=== PATIENT | female | born 1970 ===

== ENCOUNTER 2020-01-18 18:23 | Inpatient (IN) ==
[2020-01-18] MEDS ORDERED: ONDANSETRON 4 MG/2 ML VIAL IV STA (19:04)
[2020-01-18] MEDS ORDERED: ALBUTEROL/IPRATROPIUM 3 ML NEB RESP TX STA (19:04)
[2020-01-18] MEDS ORDERED: MORPHINE 4 MG/1 ML VIAL IV STA (19:04)
[2020-01-18] MEDS ORDERED: methylPREDNISolone SOD SUC 125 MG/2 ML VIAL IV STA (19:04)
[2020-01-18] MEDS ORDERED: PIPERACILLIN/TAZOBACTAM 3,375 MG in SODIUM CHLORIDE 0.9% 100 ML IV STA (19:48)
[2020-01-18 20:35] LABS: Basophils # 0.1 10*3/uL (0.0-0.2); Hematocrit 36.7 VOL% (35.7-47.0); Hemoglobin 12.1 GM/DL (12.0-16.0); Immature Granulocytes % 2.6 %; Immature Granulocytes Absolute 0.18 #; Lymphocytes # 0.2 10*3/uL (1.4-4.0); Lymphocytes % 3.4 % (21.3-54.2); Mean Corpuscular Volume 93.9 FL (87-102); Monocytes % 3.6 % (1.7-12.7); NRBC # 0.09 10*3/uL; Neutrophils % 89.4 % (38.7-73.9); Platelet Count 75 T/CUMM (130-400); Red Blood Count 3.91 MC/CUMM (3.8-5.5); Red Cell Distribution Width 19.1 % (9.3-17.3)
[2020-01-18 20:44] LABS: INR 1.4; PT Patient Result 15.3 SECS (9.6-12.2)
[2020-01-18 20:57] LABS: Band Neutrophils 6 % (0-10); Lymphocytes 4 % (20-55); Nucleated Red Blood Cells 3 (0-5); Segmented Neutrophils 86 % (50-85); Total Cells Counted 100
[2020-01-18 20:58] LABS: Platelet Estimate Decreased
[2020-01-18 21:45] LABS: Bilirubin,Total 1.1 MG/DL (0.2-1.0); Calcium 6.4 MG/DL (8.5-10.1); Osmolality,Calculated 309.1 MOS/KG (273-304); Total Protein 6.2 G/DL (6.4-8.3)
[2020-01-18] MEDS ORDERED: SODIUM POLYSTYRENE SULFATE 15 GM/60 ML BOTTLE PO STA (21:51)
[2020-01-18] MEDS ORDERED: CALCIUM CHLORIDE 1,000 MG/10 ML SYRINGE IV STA (21:51)
[2020-01-18] MEDS ORDERED: ALBUTEROL 2.5 MG/3 ML NEB RESP TX PRN (22:34)
[2020-01-18] MEDS ORDERED: diphenhydrAMINE CAP 25 MG CAPSULE PO PRN (22:34)
[2020-01-18] MEDS ORDERED: PROMETHAZINE 25 MG/1 ML VIAL IM PRN (22:34)
[2020-01-18] MEDS ORDERED: NICOTINE 21 MG/24 HR PATCH TRANSDERM PRN (22:34)
[2020-01-18] MEDS ORDERED: MORPHINE 4 MG/1 ML VIAL IV PRN (22:34)
[2020-01-18] MEDS ORDERED: guaiFENesin/DM ER 600-30 MG TABLET PO PRN (22:34)
[2020-01-18] MEDS ORDERED: ACETAMINOPHEN 325 MG TABLET PO PRN (22:34)
[2020-01-18] MEDS ORDERED: DOCUSATE SODIUM 100 MG CAPSULE PO PRN (22:34)
[2020-01-18] MEDS ORDERED: HEPARIN 5,000 UNIT/1 ML VIAL SUBCUT SCH (23:00)
[2020-01-18] MEDS ORDERED: SODIUM POLYSTYRENE SULFATE 15 GM/60 ML BOTTLE PO ONE (23:00)
[2020-01-18] MEDS: AZITHROMYCIN INJ 500 MG in SODIUM CHLORIDE 0.9% 250 ML IV SCH (23:20)
[2020-01-19] MEDS ORDERED: VANCOMYCIN INJ 500 MG in SODIUM CHLORIDE 0.9% 250 ML IV PRN (00:07)
[2020-01-19] MEDS ORDERED: VANCOMYCIN INJ 1,500 MG in SODIUM CHLORIDE 0.9% 500 ML IV ONE (01:00)
[2020-01-19] MEDS: ZALEPLON 5 MG CAPSULE PO PRN (01:46)
[2020-01-19] MEDS: ALBUTEROL/IPRATROPIUM 3 ML NEB RESP TX SCH ×5 (02:00→19:24)
[2020-01-19 02:46] LABS: Basophils # 0.1 10*3/uL (0.0-0.2); Basophils % 1.2 % (0.0-0.8); Hematocrit 35.1 VOL% (35.7-47.0); Hemoglobin 11.2 GM/DL (12.0-16.0); Immature Granulocytes % 1.9 %; Immature Granulocytes Absolute 0.14 #; Lymphocytes # 0.3 10*3/uL (1.4-4.0); Lymphocytes % 3.3 % (21.3-54.2); Mean Corpuscular HGB Conc 31.9 GM/DL (32-36); Mean Corpuscular Volume 95.4 FL (87-102); Monocytes % 3.1 % (1.7-12.7); NRBC # 0.11 10*3/uL; Neutrophils % 90.5 % (38.7-73.9); Platelet Count 83 T/CUMM (130-400); Red Blood Count 3.68 MC/CUMM (3.8-5.5); Red Cell Distribution Width 18.8 % (9.3-17.3); White Blood Count 7.5 T/CUMM (4-12)
[2020-01-19 02:59] LABS: Calcium 6.9 MG/DL (8.5-10.1); Osmolality,Calculated 311.8 MOS/KG (273-304)
[2020-01-19 03:27] LABS: Band Neutrophils 3 % (0-10); Lymphocytes 3 % (20-55); Nucleated Red Blood Cells 2 (0-5); Segmented Neutrophils 82 % (50-85); Total Cells Counted 100
[2020-01-19 03:28] LABS: Anisocytosis 1+; Burr Cells 3+; Ovalocytes 1+; Platelet Estimate Decreased
[2020-01-19] MEDS ORDERED: DEXTROSE 50% 25 GM/50 ML VIAL IV PRN (06:24)
[2020-01-19] MEDS ORDERED: GLUCAGON 1 MG VIAL IM PRN (06:24)
[2020-01-19] MEDS: INSULIN LISPRO 100 UNIT/ML SUBCUT SCH ×4 (08:13→22:08)
[2020-01-19] MEDS: PANTOPRAZOLE 40 MG TABLET PO SCH (08:15)
[2020-01-19] MEDS: PIPERACILLIN/TAZOBACTAM 3,375 MG in SODIUM CHLORIDE 0.9% 100 ML IV SCH ×2 (08:15→21:01)
[2020-01-19] MEDS: hydrALAZINE 20 MG/1 ML VIAL IV PRN (17:00)
[2020-01-19] MEDS ORDERED: VANCOMYCIN INJ 500 MG in SODIUM CHLORIDE 0.9% 100 ML IV ONE (17:00)
[2020-01-19] MEDS: AZITHROMYCIN INJ 500 MG in SODIUM CHLORIDE 0.9% 250 ML IV SCH (22:10)
[2020-01-20] MEDS: ALBUTEROL/IPRATROPIUM 3 ML NEB RESP TX SCH ×4 (00:23→19:29)
[2020-01-20 05:14] LABS: Basophils # 0.1 10*3/uL (0.0-0.2); Basophils % 0.7 % (0.0-0.8); Hematocrit 32.4 VOL% (35.7-47.0); Hemoglobin 11.2 GM/DL (12.0-16.0); Immature Granulocytes % 1.8 %; Immature Granulocytes Absolute 0.16 #; Lymphocytes # 0.3 10*3/uL (1.4-4.0); Lymphocytes % 2.8 % (21.3-54.2); Mean Corpuscular HGB Conc 34.6 GM/DL (32-36); Mean Corpuscular Volume 89.8 FL (87-102); Monocytes % 2.3 % (1.7-12.7); NRBC # 0.14 10*3/uL; Neutrophils % 92.4 % (38.7-73.9); Red Blood Count 3.61 MC/CUMM (3.8-5.5); Red Cell Distribution Width 18.5 % (9.3-17.3)
[2020-01-20 05:24] LABS: Platelet Count 66 T/CUMM (130-400)
[2020-01-20 05:50] LABS: Calcium 7.1 MG/DL (8.5-10.1)
[2020-01-20 06:05] LABS: Band Neutrophils 2 % (0-10); Lymphocytes 4 % (20-55); Metamyelocytes 1 %; Nucleated Red Blood Cells 1 (0-5); Segmented Neutrophils 86 % (50-85); Total Cells Counted 100
[2020-01-20 06:06] LABS: Acanthocytes Few; Hypochromasia 1+; Target Cells Slight
[2020-01-20 06:07] LABS: Anisocytosis 1+; Burr Cells 2+; Platelet Estimate Decreased
[2020-01-20] MEDS: INSULIN LISPRO 100 UNIT/ML SUBCUT SCH ×4 (07:37→20:46)
[2020-01-20] MEDS: hydrALAZINE 20 MG/1 ML VIAL IV PRN (07:54)
[2020-01-20] MEDS: PIPERACILLIN/TAZOBACTAM 3,375 MG in SODIUM CHLORIDE 0.9% 100 ML IV SCH (07:55)
[2020-01-20] MEDS: PANTOPRAZOLE 40 MG TABLET PO SCH (08:09)
[2020-01-20] MEDS: ZALEPLON 5 MG CAPSULE PO PRN (20:46)
[2020-01-20] MEDS: AZITHROMYCIN INJ 500 MG in SODIUM CHLORIDE 0.9% 250 ML IV SCH (23:28)
[2020-01-21] MEDS: ALBUTEROL/IPRATROPIUM 3 ML NEB RESP TX SCH ×4 (00:34→19:45)
[2020-01-21] MEDS: ONDANSETRON 4 MG/2 ML VIAL IV PRN ×3 (05:27→22:13)
[2020-01-21 05:33] LABS: Basophils % 0.2 % (0.0-0.8); Hemoglobin 10.5 GM/DL (12.0-16.0); Immature Granulocytes % 1.3 %; Immature Granulocytes Absolute 0.13 #; Lymphocytes # 0.4 10*3/uL (1.4-4.0); Lymphocytes % 4.1 % (21.3-54.2); Mean Corpuscular HGB Conc 33.9 GM/DL (32-36); Mean Corpuscular Volume 90.4 FL (87-102); Monocytes % 5.4 % (1.7-12.7); NRBC # 0.12 10*3/uL; Red Blood Count 3.43 MC/CUMM (3.8-5.5); Red Cell Distribution Width 18.6 % (9.3-17.3); White Blood Count 9.9 T/CUMM (4-12)
[2020-01-21 05:36] LABS: Platelet Count 55 T/CUMM (130-400)
[2020-01-21 05:42] LABS: Calcium 6.5 MG/DL (8.5-10.1); Osmolality,Calculated 290.1 MOS/KG (273-304)
[2020-01-21 07:33] LABS: Band Neutrophils 1 % (0-10); Eosinophils 1 % (0-10); Hypochromasia 2+; Lymphocytes 5 % (20-55); Ovalocytes Few; Platelet Estimate Decreased; Segmented Neutrophils 88 % (50-85); Total Cells Counted 100
[2020-01-21] MEDS: INSULIN LISPRO 100 UNIT/ML SUBCUT SCH ×4 (08:04→20:42)
[2020-01-21] MEDS: hydrALAZINE 20 MG/1 ML VIAL IV PRN (09:06)
[2020-01-21] MEDS: PANTOPRAZOLE 40 MG TABLET PO SCH (09:06)
[2020-01-21] MEDS: carvediloL 6.25 MG TABLET PO SCH (12:48)
[2020-01-21] MEDS: CALCIUM ACETATE 667 MG CAPSULE PO SCH ×2 (12:48→16:34)
[2020-01-21] MEDS: cloNIDine 0.1 MG TABLET PO SCH ×2 (12:48→20:42)
[2020-01-21] MEDS: lisinopriL 2.5 MG TABLET PO SCH ×2 (12:48→20:42)
[2020-01-21] MEDS: AZITHROMYCIN INJ 500 MG in SODIUM CHLORIDE 0.9% 250 ML IV SCH (22:15)
[2020-01-22] MEDS: ALBUTEROL/IPRATROPIUM 3 ML NEB RESP TX SCH ×4 (01:50→19:20)
[2020-01-22 04:49] LABS: Basophils % 0.1 % (0.0-0.8); Eosinophils % 0.4 % (0.00-10.9); Hematocrit 32.3 VOL% (35.7-47.0); Hemoglobin 10.8 GM/DL (12.0-16.0); Immature Granulocytes % 1.2 %; Immature Granulocytes Absolute 0.09 #; Lymphocytes # 0.8 10*3/uL (1.4-4.0); Mean Corpuscular HGB Conc 33.4 GM/DL (32-36); Mean Corpuscular Volume 90.7 FL (87-102); Monocytes % 5.1 % (1.7-12.7); NRBC # 0.22 10*3/uL; Neutrophils % 83.2 % (38.7-73.9); Red Blood Count 3.56 MC/CUMM (3.8-5.5); Red Cell Distribution Width 18.6 % (9.3-17.3); White Blood Count 7.5 T/CUMM (4-12)
[2020-01-22 05:05] LABS: Calcium 6.1 MG/DL (8.5-10.1); Osmolality,Calculated 288.5 MOS/KG (273-304)
[2020-01-22 05:07] LABS: Platelet Count 33 T/CUMM (130-400)
[2020-01-22 05:12] LABS: Burr Cells Few; Hypochromasia 1+; Lymphocytes 9 % (20-55); Nucleated Red Blood Cells 5 (0-5); Ovalocytes Slight; Platelet Estimate Decreased; Segmented Neutrophils 83 % (50-85); Total Cells Counted 100
[2020-01-22] MEDS: INSULIN LISPRO 100 UNIT/ML SUBCUT SCH ×4 (07:52→21:00)
[2020-01-22] MEDS: CALCIUM ACETATE 667 MG CAPSULE PO SCH ×3 (08:37→17:53)
[2020-01-22] MEDS: PANTOPRAZOLE 40 MG TABLET PO SCH (08:37)
[2020-01-22] MEDS: cloNIDine 0.1 MG TABLET PO SCH ×2 (15:11→20:59)
[2020-01-22] MEDS: carvediloL 6.25 MG TABLET PO SCH (15:11)
[2020-01-22] MEDS: lisinopriL 2.5 MG TABLET PO SCH ×2 (15:11→20:59)
[2020-01-22] MEDS ORDERED: VANCOMYCIN INJ 500 MG in SODIUM CHLORIDE 0.9% 100 ML IV ONE (17:00)
[2020-01-22] MEDS: cefTRIAXone 1,000 MG in SYRINGE 1 EACH IV SCH (17:53)
[2020-01-22] MEDS: ZALEPLON 5 MG CAPSULE PO PRN (20:58)
[2020-01-23] MEDS: ALBUTEROL/IPRATROPIUM 3 ML NEB RESP TX SCH ×4 (00:13→19:08)
[2020-01-23 04:49] LABS: Basophils % 0.1 % (0.0-0.8); Eosinophils % 0.3 % (0.00-10.9); Hemoglobin 10.5 GM/DL (12.0-16.0); Immature Granulocytes % 2.4 %; Immature Granulocytes Absolute 0.18 #; Lymphocytes # 0.9 10*3/uL (1.4-4.0); Lymphocytes % 11.2 % (21.3-54.2); Mean Corpuscular HGB Conc 32.8 GM/DL (32-36); Mean Corpuscular Volume 91.7 FL (87-102); Monocytes % 5.3 % (1.7-12.7); Neutrophils % 80.7 % (38.7-73.9); Red Blood Count 3.49 MC/CUMM (3.8-5.5); Red Cell Distribution Width 18.5 % (9.3-17.3); White Blood Count 7.6 T/CUMM (4-12)
[2020-01-23 05:04] LABS: Platelet Count 38 T/CUMM (130-400)
[2020-01-23 05:07] LABS: Hypochromasia 1+; Ovalocytes Few
[2020-01-23 05:08] LABS: Acanthocytes Few; Anisocytosis 1+; Target Cells Slight
[2020-01-23 05:09] LABS: Platelet Estimate Decreased
[2020-01-23 05:19] LABS: Calcium 6.2 MG/DL (8.5-10.1); Osmolality,Calculated 280.4 MOS/KG (273-304)
[2020-01-23] MEDS: lisinopriL 2.5 MG TABLET PO SCH ×2 (08:36→21:32)
[2020-01-23] MEDS: carvediloL 6.25 MG TABLET PO SCH (08:36)
[2020-01-23] MEDS: CALCIUM ACETATE 667 MG CAPSULE PO SCH ×3 (08:36→16:59)
[2020-01-23] MEDS: INSULIN LISPRO 100 UNIT/ML SUBCUT SCH ×4 (08:36→21:31)
[2020-01-23] MEDS: cloNIDine 0.1 MG TABLET PO SCH ×2 (08:36→21:32)
[2020-01-23] MEDS: PANTOPRAZOLE 40 MG TABLET PO SCH (08:36)
[2020-01-23] MEDS: cefTRIAXone 1,000 MG in SYRINGE 1 EACH IV SCH (17:00)
[2020-01-24] MEDS: ALBUTEROL/IPRATROPIUM 3 ML NEB RESP TX SCH ×4 (00:18→19:06)
[2020-01-24 05:03] LABS: Basophils # 0.1 10*3/uL (0.0-0.2); Basophils % 0.4 % (0.0-0.8); Eosinophils # 0.1 10*3/uL (0.0-0.87); Eosinophils % 0.9 % (0.00-10.9); Immature Granulocytes % 5.1 %; Immature Granulocytes Absolute 0.69 #; Lymphocytes # 1.1 10*3/uL (1.4-4.0); Lymphocytes % 8.3 % (21.3-54.2); Mean Corpuscular HGB Conc 33.2 GM/DL (32-36); Mean Corpuscular Volume 92.2 FL (87-102); Monocytes % 4.8 % (1.7-12.7); NRBC # 0.33 10*3/uL; Neutrophils % 80.5 % (38.7-73.9); Red Blood Count 4.12 MC/CUMM (3.8-5.5); Red Cell Distribution Width 18.9 % (9.3-17.3); White Blood Count 13.4 T/CUMM (4-12)
[2020-01-24 05:21] LABS: Hemoglobin 12.6 GM/DL (12.0-16.0); Platelet Count 65 T/CUMM (130-400)
[2020-01-24 05:37] LABS: Calcium 6.8 MG/DL (8.5-10.1); Osmolality,Calculated 274.8 MOS/KG (273-304)
[2020-01-24 06:12] LABS: Hypochromasia 1+; Lymphocytes 11 % (20-55); Nucleated Red Blood Cells 2 (0-5); Ovalocytes Slight; Platelet Estimate Decreased; Segmented Neutrophils 83 % (50-85); Total Cells Counted 100
[2020-01-24] MEDS: INSULIN LISPRO 100 UNIT/ML SUBCUT SCH ×4 (09:18→21:41)
[2020-01-24] MEDS: CALCIUM ACETATE 667 MG CAPSULE PO SCH ×3 (09:19→17:42)
[2020-01-24] MEDS: cloNIDine 0.1 MG TABLET PO SCH ×2 (09:19→21:40)
[2020-01-24] MEDS: carvediloL 6.25 MG TABLET PO SCH (09:19)
[2020-01-24] MEDS: lisinopriL 2.5 MG TABLET PO SCH ×2 (09:19→21:40)
[2020-01-24] MEDS: PANTOPRAZOLE 40 MG TABLET PO SCH (09:19)
[2020-01-24] MEDS ORDERED: VANCOMYCIN INJ 500 MG in SODIUM CHLORIDE 0.9% 100 ML IV ONE (17:00)
[2020-01-24] MEDS: cefTRIAXone 1,000 MG in SYRINGE 1 EACH IV SCH ×2 (17:43→21:38)
[2020-01-24] MEDS: ZALEPLON 5 MG CAPSULE PO PRN (21:40)
[2020-01-25] MEDS: hydrALAZINE 20 MG/1 ML VIAL IV PRN (00:35)
[2020-01-25] MEDS: ALBUTEROL/IPRATROPIUM 3 ML NEB RESP TX SCH ×4 (00:40→13:16)
[2020-01-25] MEDS: ONDANSETRON 4 MG/2 ML VIAL IV PRN (06:11)
[2020-01-25] MEDS ORDERED: carvediloL 6.25 MG TABLET PO SCH (09:00)
[2020-01-25 09:20] LABS: Basophils % 0.2 % (0.0-0.8); Eosinophils # 0.1 10*3/uL (0.0-0.87); Eosinophils % 0.6 % (0.00-10.9); Hematocrit 36.9 VOL% (35.7-47.0); Hemoglobin 11.9 GM/DL (12.0-16.0); Immature Granulocytes % 3.7 %; Immature Granulocytes Absolute 0.34 #; Lymphocytes # 0.7 10*3/uL (1.4-4.0); Mean Corpuscular HGB Conc 32.2 GM/DL (32-36); Mean Corpuscular Volume 92.7 FL (87-102); Mean Platelet Volume 12.2 FL (9.6-12.0); Monocytes % 5.7 % (1.7-12.7); NRBC # 0.12 10*3/uL; Neutrophils % 81.8 % (38.7-73.9); Platelet Count 123 T/CUMM (130-400); Red Blood Count 3.98 MC/CUMM (3.8-5.5); Red Cell Distribution Width 18.7 % (9.3-17.3); White Blood Count 9.3 T/CUMM (4-12)
[2020-01-25] MEDS: INSULIN LISPRO 100 UNIT/ML SUBCUT SCH (09:42)
[2020-01-25] MEDS: PANTOPRAZOLE 40 MG TABLET PO SCH (09:43)
[2020-01-25] MEDS: lisinopriL 2.5 MG TABLET PO SCH (09:43)
[2020-01-25] MEDS: CALCIUM ACETATE 667 MG CAPSULE PO SCH ×2 (09:43→12:40)
[2020-01-25] MEDS: cloNIDine 0.1 MG TABLET PO SCH (09:43)
[2020-01-25] MEDS ORDERED: INFLUENZA VIRUS VACCINE 0.5 ML SYRINGE IM ONE (12:22)
[2020-01-25 13:29] VITALS: BP 199/101
== END 2020-01-25 15:16 | disposition home or self-care (01) | DRG 193 ==
LOC: N.ED 18:23 → SUATTDRO 22:34 → N.EDINP 22:34 → N.TELES 23:57 → N.TELEN 01-20 17:10
PROVIDERS: ADMIT Internal Medicine Geriatric Medicine; ATTEND Internal Medicine